=== PATIENT | female | born 1965 | race Caucasian/White ===

== ENCOUNTER 2022-10-26 20:20 | Inpatient (IN) | payer MEDICAID ==
[~2022-10-26] VITALS: Ht 180.3 cm; Wt 94.1 kg
[2022-10-26] MEDS ORDERED: normal saline 1000ML IV soln IVB ONE (20:30)
[2022-10-26 21:03] LABS: BASOPHILS # (AUTO) 0.1 X10'3 (0-0.2); BASOPHILS % (AUTO) 0.8 % (0-1); EOSINOPHILS # (AUTO) 0.1 X10'3 (0-0.9); EOSINOPHILS % (AUTO) 0.4 % (0-6); HEMATOCRIT 46.6 % (35.0-45.0); HEMOGLOBIN 15.7 g/dl (12.0-16.0); LYMPHOCYTES # (AUTO) 1.8 X10'3 (1.1-4.8); LYMPHOCYTES % (AUTO) 11.9 % (21-51); MEAN CORPUSCULAR HEMOGLOBIN 31.9 PG (27.0-31.0); MEAN CORPUSCULAR HGB CONC 33.7 g/dL (33.0-36.5); MEAN CORPUSCULAR VOLUME 94.8 FL (78-98); MEAN PLATELET VOLUME 8.6 FL (7.4-10.4); MONOCYTES # (AUTO) 0.8 X10'3 (0-0.9); MONOCYTES % (AUTO) 5.2 % (2-12); NEUTROPHILS # (AUTO) 12.5 X10'3 (1.8-7.7); NEUTROPHILS % (AUTO) 81.7 % (42-75); PLATELET COUNT 274 X10'3 (140-440); RED BLOOD COUNT 4.91 X10'6 (4.20-5.60); RED CELL DISTRIBUTION WIDTH 13.8 % (11.5-14.5); WHITE BLOOD COUNT 15.3 X10'3 (4.5-11.0)
[2022-10-26 21:17] LABS: ALANINE AMINOTRANSFERASE 20 U/L (12-78); ALBUMIN 3.6 G/DL (3.4-5.0); ALBUMIN/GLOBULIN RATIO 1.1 (1.1-1.5); ALKALINE PHOSPHATASE 124 IU/L (46-116); ANION GAP 10 (8-16); ASPARTATE AMINO TRANSFERASE 12 U/L (10-37); BILIRUBIN,TOTAL 0.3 MG/DL (0.1-1.0); BLOOD UREA NITROGEN 7 MG/DL (7-18); BUN/CREATININE RATIO 8.4 (6.6-38.0); CALCIUM 8.8 MG/DL (8.5-10.1); CHLORIDE 99 MMOL/L (99-107); CREATININE 0.83 MG/DL (0.40-0.90); GLUCOSE 326 MG/DL (70-104); POTASSIUM 4.6 MMOL/L (3.5-5.1); SODIUM 134 MMOL/L (135-145); TOTAL CARBON DIOXIDE 24.9 MMOL/L (24-32); eGFR 71 ML/MIN
[2022-10-26] MEDS ORDERED: morphine 4 MG/ML inj SYRINge IM ONE (21:25)
[2022-10-26] MEDS ORDERED: morphine 4 MG/ML inj SYRINge IV ONE (22:35)
[2022-10-26] MEDS ORDERED: GABA800T11 PO (22:53)
[2022-10-26] MEDS ORDERED: ZIPR40CA2 PO (22:53)
[2022-10-26] MEDS ORDERED: GEMF600T PO (22:53)
[2022-10-26] MEDS ORDERED: CLON-527 PO (22:53)
[2022-10-26] MEDS ORDERED: RIVA20TA PO (22:53)
[2022-10-26] MEDS ORDERED: SYN0.088T PO (22:53)
[2022-10-26] MEDS ORDERED: LEVO120C PO (22:53)
[2022-10-26] MEDS ORDERED: gabapentin 400mg capsule PO SCH (23:36)
[2022-10-26] MEDS ORDERED: ziprasidone 20mg capsule PO SCH (23:36)
[2022-10-26] MEDS ORDERED: LORazepam 1 MG tablet PO ONE (23:40)
[2022-10-26] MEDS ORDERED: mag hydrox/Alum hydrox/simeth 30ml oral suspension PO PRN (23:55)
[2022-10-26] MEDS ORDERED: morphine 2 MG/ML inj. syringe IV PRN ×2 (23:55)
[2022-10-26] MEDS ORDERED: glucagon, human recombinant 1mg kit SUBCUT PRN (23:55)
[2022-10-26] MEDS ORDERED: PERFLUTREN PROTEIN-A MICROSPHR (Optison) 0.22 MG/ML 3ML VIAL IV ONE (23:55)
[2022-10-26] MEDS ORDERED: dextrose 50%-water 50ml dispensing syringe IV PRN ×2 (23:55)
[2022-10-26] MEDS ORDERED: magnesium 4gm in 100ml NS 100 ML IV PRN (23:55)
[2022-10-26] MEDS ORDERED: DEXTROSE 15 GM of carb/4 tabs (each vial/BOTTLE has 4 tablets) PO PRN ×2 (23:55)
[2022-10-26] MEDS ORDERED: magnesium hydroxide 30ml (MOM) UD suspension PO PRN (23:55)
[2022-10-26] MEDS ORDERED: potassium Cl 20 mEq SR tablet PO PRN ×2 (23:55)
[2022-10-26] MEDS ORDERED: MESSAGE TO PHARMACY PO ONE (23:55)
[2022-10-26] MEDS ORDERED: acetaminophen 325mg tablet PO PRN (23:55)
[2022-10-26] MEDS ORDERED: potassium Cl 40MEQ/1/2NS 520ml 520 ML IV PRN (23:55)
[2022-10-27] MEDS ORDERED: iohexol 350MG/ML 100ml bottle IV ONE (00:11)
[2022-10-27] MEDS ORDERED: gabapentin 400mg capsule PO SCH (00:50)
[2022-10-27] MEDS: normal saline 1000ml 1,000 ML IV SCH ×3 (01:12→20:34)
[2022-10-27] MEDS ORDERED: HYDROmorphone 1 mg/ml syringe IV ONE (01:25)
[2022-10-27] MEDS: levoTHYROXINE 100mcg tablet PO SCH (07:02)
[2022-10-27] MEDS: ondansetron/PF 4mg/2ml inj IV PRN (07:02)
[2022-10-27] MEDS: docusate sod 100mg capsule PO SCH ×2 (07:15→20:00)
[2022-10-27 07:25] LABS: BASOPHILS % (AUTO) 0.3 % (0-1); EOSINOPHILS % (AUTO) 0.2 % (0-6); HEMATOCRIT 41.9 % (35.0-45.0); HEMOGLOBIN 14.4 g/dl (12.0-16.0); LYMPHOCYTES # (AUTO) 2.8 X10'3 (1.1-4.8); LYMPHOCYTES % (AUTO) 24.1 % (21-51); MEAN CORPUSCULAR HEMOGLOBIN 32.9 PG (27.0-31.0); MEAN CORPUSCULAR HGB CONC 34.4 g/dL (33.0-36.5); MEAN CORPUSCULAR VOLUME 95.9 FL (78-98); MEAN PLATELET VOLUME 8.9 FL (7.4-10.4); MONOCYTES # (AUTO) 0.8 X10'3 (0-0.9); NEUTROPHILS % (AUTO) 68.4 % (42-75); PLATELET COUNT 285 X10'3 (140-440); RED BLOOD COUNT 4.37 X10'6 (4.20-5.60); RED CELL DISTRIBUTION WIDTH 14.1 % (11.5-14.5); WHITE BLOOD COUNT 11.7 X10'3 (4.5-11.0)
[2022-10-27] MEDS: ziprasidone 20mg capsule PO SCH ×2 (07:29→20:32)
[2022-10-27] MEDS: clonazePAM 1mg tablet PO SCH ×3 (07:29→20:31)
[2022-10-27 09:08] LABS: ALANINE AMINOTRANSFERASE 44 U/L (12-78); ALBUMIN 3.3 G/DL (3.4-5.0); ALKALINE PHOSPHATASE 138 IU/L (46-116); ANION GAP 9 (8-16); ASPARTATE AMINO TRANSFERASE 41 U/L (10-37); BILIRUBIN,TOTAL 0.4 MG/DL (0.1-1.0); BLOOD UREA NITROGEN 8 MG/DL (7-18); BUN/CREATININE RATIO 10.3 (6.6-38.0); CALCIUM 8.6 MG/DL (8.5-10.1); CHLORIDE 101 MMOL/L (99-107); CREATININE 0.78 MG/DL (0.40-0.90); GLUCOSE 244 MG/DL (70-104); MAGNESIUM 1.4 MG/DL (1.5-2.4); POTASSIUM 4.2 MMOL/L (3.5-5.1); SODIUM 137 MMOL/L (135-145); TOTAL CARBON DIOXIDE 26.8 MMOL/L (24-32); TOTAL PROTEIN 6.7 G/DL (6.4-8.2); eGFR 76 ML/MIN
[2022-10-27] MEDS: HYDROmorphone inj. 0.5 MG/0.5 ML DISP.SYRIN IV PRN ×4 (09:23→23:36)
[2022-10-27] MEDS ORDERED: DULA0.75 SQ (12:36)
[2022-10-27] MEDS ORDERED: ZIPR60CA7 PO (12:37)
[2022-10-27] MEDS ORDERED: ZIPR40CA14 PO (12:37)
[2022-10-27] MEDS ORDERED: ALBU18HF2 PO (12:38)
[2022-10-27] MEDS ORDERED: GABA300C PO (12:39)
[2022-10-27] MEDS ORDERED: VARE1TAB29 PO (12:41)
[2022-10-27] MEDS ORDERED: METF-1203 PO (12:41)
[2022-10-27] MEDS ORDERED: METF-436 PO (12:41)
[2022-10-27] MEDS: insulin Lispro (HumaLOG) vial - multi-dose SQ SCH ×2 (13:42→22:02)
[2022-10-27 17:40] VITALS: BP 129/74
[2022-10-27 18:09] LABS: HEMOGLOBIN A1C 8.1 % (4.5-6.2)
--- NOTE | 2022-10-27 18:34 | NUR ---
PAGER ID: [phone] MESSAGE: [id number] GOLDEN MENDEZ PATIENT HAS A TRACHEAL NODULE THAT MAKES IT HARD TO SWALLOW. DO YOU WANT A BSS? AND WHAT KIND OF DIET. SHIELA [phone]
--- NOTE | 2022-10-27 18:40 | NUR ---
Problems reprioritized. Patient report given, questions answered & plan of care reviewed with MOE PALM.
[2022-10-27 22:00] VITALS: BP 151/85
[2022-10-27] MEDS: insulin glargine (Lantus) pen - multi-dose SQ SCH (22:03)
[2022-10-27] MEDS ORDERED: gabapentin 300mg capsule PO SCH (22:30)
[2022-10-27] MEDS ORDERED: cyclobenzaprine 10mg tablet PO PRN (22:30)
[2022-10-27] MEDS: cyclobenzaprine 10mg tablet PO PRN (23:12)
[2022-10-28] MEDS: ondansetron/PF 4mg/2ml inj IV PRN (01:15)
[2022-10-28] MEDS: HYDROmorphone inj. 0.5 MG/0.5 ML DISP.SYRIN IV PRN ×3 (03:50→20:17)
[2022-10-28] MEDS: normal saline 1000ml 1,000 ML IV SCH ×3 (03:51→23:52)
[2022-10-28 07:00] VITALS: BP 123/80
[2022-10-28 07:09] LABS: BASOPHILS % (AUTO) 0.3 % (0-1); EOSINOPHILS % (AUTO) 0.3 % (0-6); HEMATOCRIT 39.9 % (35.0-45.0); HEMOGLOBIN 13.5 g/dl (12.0-16.0); LYMPHOCYTES # (AUTO) 3.2 X10'3 (1.1-4.8); LYMPHOCYTES % (AUTO) 28.9 % (21-51); MEAN CORPUSCULAR HEMOGLOBIN 32.1 PG (27.0-31.0); MEAN CORPUSCULAR HGB CONC 33.8 g/dL (33.0-36.5); MEAN PLATELET VOLUME 9.2 FL (7.4-10.4); MONOCYTES # (AUTO) 0.9 X10'3 (0-0.9); NEUTROPHILS % (AUTO) 62.5 % (42-75); PLATELET COUNT 270 X10'3 (140-440); RED CELL DISTRIBUTION WIDTH 13.9 % (11.5-14.5); WHITE BLOOD COUNT 11.2 X10'3 (4.5-11.0)
--- NOTE | 2022-10-28 07:24 | NUR ---
Page sent to [facility] Praneeth Ibarra: EEG ordered. not sure if you have been notified yet. thank you!
[2022-10-28 07:38] LABS: ALANINE AMINOTRANSFERASE 29 U/L (12-78); ALBUMIN 3.1 G/DL (3.4-5.0); ALBUMIN/GLOBULIN RATIO 0.9 (1.1-1.5); ALKALINE PHOSPHATASE 122 IU/L (46-116); ANION GAP 10 (8-16); ASPARTATE AMINO TRANSFERASE 16 U/L (10-37); BILIRUBIN,TOTAL 0.4 MG/DL (0.1-1.0); BLOOD UREA NITROGEN 7 MG/DL (7-18); BUN/CREATININE RATIO 10.6 (6.6-38.0); CALCIUM 8.2 MG/DL (8.5-10.1); CHLORIDE 103 MMOL/L (99-107); CREATININE 0.66 MG/DL (0.40-0.90); GLUCOSE 267 MG/DL (70-104); MAGNESIUM 1.4 MG/DL (1.5-2.4); POTASSIUM 4.1 MMOL/L (3.5-5.1); SODIUM 136 MMOL/L (135-145); TOTAL CARBON DIOXIDE 23.1 MMOL/L (24-32); TOTAL PROTEIN 6.4 G/DL (6.4-8.2); eGFR > 90 ML/MIN
[2022-10-28] MEDS: docusate sod 100mg capsule PO SCH ×2 (08:00→20:00)
--- NOTE | 2022-10-28 08:46 | NUR ---
Message: Praneeth Leal: will patient be having surgery this admission? she is wanting to eat. thank you, michael [phone] Transaction number: [id number]
[2022-10-28] MEDS: gabapentin 300mg capsule PO SCH ×3 (08:51→20:12)
[2022-10-28] MEDS: clonazePAM 1mg tablet PO SCH ×3 (08:51→20:13)
[2022-10-28] MEDS: levoTHYROXINE 100mcg tablet PO SCH (08:51)
--- NOTE | 2022-10-28 08:59 | NUR ---
Patient refused humalog coverage for blood glucose of 257.
[2022-10-28 11:00] VITALS: BP 152/75
[2022-10-28] MEDS: ziprasidone 20mg capsule PO SCH ×2 (11:00→20:12)
--- NOTE | 2022-10-28 13:21 | NUR ---
Malnutrition/DM Consults: Pt admit s/p fall DX L humerus fx pending OR for repair tomorrow per EMR. Pt hx T2DM A1C 8.1% reports greater than 34 pounds wt loss w/ decreased intake [employer] per EMR. Noted intermittent dysphagia per MD note pending first PO intake carb controlled diet WL today per EMR. 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 Pending scaled wt this admit though current reported wt 207 pounds would be 16% UBW loss 3 months severe. Pt w/ mild temporal wasting evident and given predicted suboptimal intake w/ wt loss meets severe malnutrition criteria; MD notified. RD made pt aware of [employer]ONG[employer] BSS services this admit but pt declines. Pt politely declines verbal DM diet report has had education her whole life though is agreeable to written DM ed w/ RD contact information left at bedside. Pt reports takes metformin at home w/ last A1C prior to admit 8.6% takes meds per rx and checks Glu routinely typically ~220mg/dl at home. RD encouraged pt to contact dietitian's office if further nutrition questions/concerns this admit. Pt also reports severe pistachio allergy; EMR updated and dietary notified. Will monitor for PO trends and further nutrition intervention needs this admit. Rec: 1. continue carb controlled diet; encourage PO 2. monitor for PO trends and ONS needs; pending OR tomorrow per EMR 3. MVI supplementation for wound healing post-op per physician discretion 4. routine bowel care 5. scaled wt this admit; subsequent weekly wts Addendum: 10/28/22 at [address] Amended: Links added.
[2022-10-28] MEDS: magnesium Cl slow-release 64mg tablet PO PRN ×2 (14:38→20:13)
--- NOTE | 2022-10-28 15:38 | NUR ---
Patient refused humalog coverage for blood glucose of 250. Addendum: 10/28/22 at 1538 by Shante Man RN Amended: Links added.
[2022-10-28 18:00] VITALS: BP 114/69
--- NOTE | 2022-10-28 18:23 | NUR ---
Problems reprioritized. Patient report given, questions answered & plan of care reviewed with NÉSTOR Cook.
--- NOTE | 2022-10-28 18:35 | NUR ---
Patient in room NAHED 356. I have received report from RAGINI PALM and had the opportunity to ask questions and assume patient care.
[2022-10-28] MEDS: insulin Lispro (HumaLOG) vial - multi-dose SQ SCH (19:33)
[2022-10-28] MEDS: cyclobenzaprine 10mg tablet PO PRN (20:14)
[2022-10-28 22:00] VITALS: BP 131/80
[2022-10-28] MEDS: insulin glargine (Lantus) pen - multi-dose SQ SCH (22:05)
[2022-10-29] VITALS (20 sets, daily range): BP systolic 89–161; BP diastolic 39–85
[2022-10-29] MEDS: HYDROmorphone inj. 0.5 MG/0.5 ML DISP.SYRIN IV PRN ×3 (00:41→10:43)
[2022-10-29 06:16] LABS: BASOPHILS # (AUTO) 0.1 X10'3 (0-0.2); BASOPHILS % (AUTO) 0.4 % (0-1); EOSINOPHILS # (AUTO) 0.1 X10'3 (0-0.9); EOSINOPHILS % (AUTO) 0.4 % (0-6); HEMATOCRIT 39.9 % (35.0-45.0); HEMOGLOBIN 13.5 g/dl (12.0-16.0); LYMPHOCYTES # (AUTO) 2.8 X10'3 (1.1-4.8); LYMPHOCYTES % (AUTO) 18.6 % (21-51); MEAN CORPUSCULAR HEMOGLOBIN 32.2 PG (27.0-31.0); MEAN CORPUSCULAR HGB CONC 33.8 g/dL (33.0-36.5); MEAN CORPUSCULAR VOLUME 95.4 FL (78-98); MEAN PLATELET VOLUME 8.9 FL (7.4-10.4); MONOCYTES % (AUTO) 6.6 % (2-12); NEUTROPHILS # (AUTO) 11.3 X10'3 (1.8-7.7); PLATELET COUNT 287 X10'3 (140-440); RED BLOOD COUNT 4.18 X10'6 (4.20-5.60); RED CELL DISTRIBUTION WIDTH 13.8 % (11.5-14.5); WHITE BLOOD COUNT 15.3 X10'3 (4.5-11.0)
--- NOTE | 2022-10-29 06:30 | NUR ---
Problems reprioritized. Patient report given, questions answered & plan of care reviewed with RAGINI PALM.
[2022-10-29 06:43] LABS: ALANINE AMINOTRANSFERASE 25 U/L (12-78); ALBUMIN/GLOBULIN RATIO 0.9 (1.1-1.5); ALKALINE PHOSPHATASE 117 IU/L (46-116); ANION GAP 9 (8-16); ASPARTATE AMINO TRANSFERASE 10 U/L (10-37); BILIRUBIN,TOTAL 0.5 MG/DL (0.1-1.0); BLOOD UREA NITROGEN 9 MG/DL (7-18); BUN/CREATININE RATIO 13.8 (6.6-38.0); CALCIUM 8.8 MG/DL (8.5-10.1); CHLORIDE 102 MMOL/L (99-107); CREATININE 0.65 MG/DL (0.40-0.90); GLUCOSE 269 MG/DL (70-104); MAGNESIUM 1.5 MG/DL (1.5-2.4); POTASSIUM 3.9 MMOL/L (3.5-5.1); SODIUM 137 MMOL/L (135-145); TOTAL CARBON DIOXIDE 26.3 MMOL/L (24-32); TOTAL PROTEIN 6.3 G/DL (6.4-8.2); eGFR > 90 ML/MIN
[2022-10-29] MEDS: levoTHYROXINE 100mcg tablet PO SCH (07:25)
[2022-10-29] MEDS: clonazePAM 1mg tablet PO SCH ×3 (07:26→19:21)
[2022-10-29] MEDS: gabapentin 300mg capsule PO SCH ×3 (07:26→16:58)
[2022-10-29] MEDS: ziprasidone 20mg capsule PO SCH (07:26)
[2022-10-29] MEDS: insulin Lispro (HumaLOG) vial - multi-dose SQ SCH ×3 (07:34→21:30)
[2022-10-29] MEDS: docusate sod 100mg capsule PO SCH ×2 (07:37→20:00)
[2022-10-29] MEDS: normal saline 1000ml 1,000 ML IV SCH ×2 (11:55→21:55)
--- NOTE | 2022-10-29 13:01 | NUR ---
report called to [facility] recovery analyst.
[2022-10-29] MEDS ORDERED: cloNIDine hcl/PF 100mcg/ml inj ONE (13:26)
[2022-10-29] MEDS ORDERED: fentaNYL /PF 50mcg/ml 5ml ampule ONE (13:29)
[2022-10-29] MEDS ORDERED: midazolam 1 mg/ML 2ml injection ONE (13:29)
[2022-10-29] MEDS ORDERED: propofol inj 20 ML IV ONE (13:30)
[2022-10-29] MEDS ORDERED: ePHEDrine 50MG/ML INJ. ONE (13:34)
[2022-10-29] MEDS ORDERED: sevoflurane 250ml liquid IH ONE (13:34)
[2022-10-29] MEDS ORDERED: ceFAZolin 1000mg inj ONE ×2 (14:23)
[2022-10-29] MEDS ORDERED: ROPIVAcaine 0.5% (5mg/ml) 30ml vial ONE (14:41)
[2022-10-29] MEDS ORDERED: vancomycin 1,000mg inj ONE (14:42)
[2022-10-29] MEDS ORDERED: dexamethasone sod phosphate 4mg/ml inj. ONE (14:43)
[2022-10-29] MEDS ORDERED: rocuronium 10mg/ml inj IV ONE (14:43)
[2022-10-29] MEDS ORDERED: ROPIVAcaine 0.2%/PF PUMP/bolus 545 ML INTERSCALE SCH (15:15)
[2022-10-29] MEDS ORDERED: ringers solution, lacted 1,000 ML IV SCH (15:15)
[2022-10-29] MEDS ORDERED: morphine 4 MG/ML inj SYRINge IV PRN (15:15)
[2022-10-29] MEDS ORDERED: ROPIVAcaine 0.2% (10 MG/5 ML) BOLUS INJECTION INTERSCALE PRN (15:15)
[2022-10-29] MEDS ORDERED: ondansetron/PF 4mg/2ml inj IV PRN (15:15)
[2022-10-29] MEDS ORDERED: proCHLORperazine 10 MG/2 ml inj IV PRN (15:15)
[2022-10-29] MEDS ORDERED: morphine 2 MG/ML inj. syringe IV PRN (15:15)
[2022-10-29] MEDS ORDERED: meperidine/PF 25mg/ml syringe IV PRN ×3 (15:15)
[2022-10-29] MEDS ORDERED: ondansetron/PF 4mg/2ml inj ONE (15:28)
[2022-10-29] MEDS ORDERED: sugammadex 200mg/2ml injection IV ONE (15:30)
--- NOTE | 2022-10-29 15:42 | NUR ---
Received from OR via ORTHO BED , accompanied by Anesthesiologist BRAN and report given by Anesthesiolgist. PATIENT WITH 20GPIV IN RIGHT UE RUNNING LR AT 100. VSS. DENIES PAIN AT THIS TIME LEFT SHOULDER WITH SHOULDER WRAP AND POWDER PACK. ON Q NERVE BLOCK SITE PRESENT AND WILL ATTACH ON Q UPON ARRIVAL. + RADIAL PULSE PRESENT AND SLING IS ON. VSS AND WILL CONTINUE TO ASSESS AND TREAT. Addendum: 10/29/22 at 1550 by Edgar Robin RN, RN Amended: Links added.
[2022-10-29] MEDS ORDERED: HYDROmorphone inj. 0.5 MG/0.5 ML DISP.SYRIN IV PRN (15:50)
[2022-10-29] MEDS ORDERED: HYDROcodone/acetaminophen 10/325mg tab PO PRN ×2 (15:50)
[2022-10-29] MEDS ORDERED: albuterol 2.5 MG/3 ML nebule NEB PRN (15:50)
[2022-10-29] MEDS ORDERED: HYDROmorphone 1 mg/ml syringe IV PRN (15:50)
[2022-10-29] MEDS ORDERED: naloxone 0.4 mg/ml inj IV PRN (15:50)
--- NOTE | 2022-10-29 16:52 | NUR ---
REPORT GIVEN AND ALL QUESTIONS ANSWERED. PATIENT TRANSFERRED TO SURG/ORTHO PCU ICU. LABELED BELONGINGS PRESENT AND DELIVERED TO ROOM. RN PRESENT ALL CRITERIA FOR TRANSFER BACK TO THE FLOOR HAS BEEN ACHIEVED. VSS. PAIN AT A TOLERABLE LEVEL. BED LOW, CALL LIGHT PRESENT AND 2 RAILS DOWN. RN AWARE THAT PATIENT HAS ARRIVED. TO ACCEPT CARE OF PATIENT, NÉSTOR MEJIA PRESENT TO ACCEPT CARE OF PATIENT. Addendum: 10/29/22 at 1659 by Edgar Dixon - NÉSTOR PALM Amended: Links added.
--- NOTE | 2022-10-29 16:54 | NUR ---
patient back from OR. Vital signs stable. No complaints of pain. Dressing CDI.
[2022-10-29] MEDS: potassium cl 20mEq in 1/2 NS 1,000 ML IV SCH (16:58)
[2022-10-29] MEDS: ceFAZolin/D5W- 1GM premix 50 ML IV SCH ×2 (16:58→22:57)
[2022-10-29] MEDS ORDERED: rivaroxaban 20mg tablet PO SCH (18:21)
--- NOTE | 2022-10-29 18:26 | NUR ---
Problems reprioritized. Patient report given, questions answered & plan of care reviewed with NÉSTOR Tamayo.
--- NOTE | 2022-10-29 18:30 | NUR ---
Patient in room NAHED 356. I have received report from [place] and had the opportunity to ask questions and assume patient care.
[2022-10-29] MEDS ORDERED: vancomycin/NS 1 GM ADD-VANTAGE 250 ML IV SCH (20:00)
[2022-10-29] MEDS ORDERED: sennosides 8.6mg tablet PO SCH (21:00)
[2022-10-29] MEDS ORDERED: ziprasidone 20mg capsule PO SCH (21:00)
[2022-10-29] MEDS ORDERED: metFORMIN 500mg tablet PO SCH (21:00)
[2022-10-29] MEDS: insulin glargine (Lantus) pen - multi-dose SQ SCH (21:31)
[2022-10-29] MEDS: varenicline tartrate 1mg tablet PO SCH (22:57)
[2022-10-30] MEDS: gabapentin 300mg capsule PO SCH ×3 (00:30→15:34)
[2022-10-30] MEDS: potassium cl 20mEq in 1/2 NS 1,000 ML IV SCH ×3 (00:34→15:34)
[2022-10-30 02:00] VITALS: BP 115/78
[2022-10-30 06:35] LABS: BASOPHILS % (AUTO) 0.1 % (0-1); EOSINOPHILS % (AUTO) 0 % (0-6); HEMOGLOBIN 10.8 g/dl (12.0-16.0); LYMPHOCYTES # (AUTO) 1.4 X10'3 (1.1-4.8); LYMPHOCYTES % (AUTO) 10.4 % (21-51); MEAN CORPUSCULAR HEMOGLOBIN 32.2 PG (27.0-31.0); MEAN CORPUSCULAR HGB CONC 33.7 g/dL (33.0-36.5); MEAN CORPUSCULAR VOLUME 95.5 FL (78-98); MEAN PLATELET VOLUME 9.5 FL (7.4-10.4); MONOCYTES # (AUTO) 1.2 X10'3 (0-0.9); MONOCYTES % (AUTO) 8.7 % (2-12); NEUTROPHILS # (AUTO) 11.2 X10'3 (1.8-7.7); NEUTROPHILS % (AUTO) 80.8 % (42-75); PLATELET COUNT 237 X10'3 (140-440); RED BLOOD COUNT 3.35 X10'6 (4.20-5.60); RED CELL DISTRIBUTION WIDTH 13.2 % (11.5-14.5); WHITE BLOOD COUNT 13.8 X10'3 (4.5-11.0)
[2022-10-30 07:00] VITALS: BP 100/62
[2022-10-30 07:04] LABS: ALANINE AMINOTRANSFERASE 21 U/L (12-78); ALBUMIN 2.3 G/DL (3.4-5.0); ALBUMIN/GLOBULIN RATIO 0.8 (1.1-1.5); ALKALINE PHOSPHATASE 101 IU/L (46-116); ANION GAP 8 (8-16); ASPARTATE AMINO TRANSFERASE 14 U/L (10-37); BILIRUBIN,TOTAL 0.3 MG/DL (0.1-1.0); BLOOD UREA NITROGEN 10 MG/DL (7-18); BUN/CREATININE RATIO 18.2 (6.6-38.0); CALCIUM 7.6 MG/DL (8.5-10.1); CHLORIDE 101 MMOL/L (99-107); CREATININE 0.55 MG/DL (0.40-0.90); GLUCOSE 250 MG/DL (70-104); MAGNESIUM 1.4 MG/DL (1.5-2.4); SODIUM 129 MMOL/L (135-145); TOTAL CARBON DIOXIDE 20.1 MMOL/L (24-32); TOTAL PROTEIN 5.2 G/DL (6.4-8.2); eGFR > 90 ML/MIN
[2022-10-30 07:14] LABS: POTASSIUM 6.2 MMOL/L (3.5-5.1)
[2022-10-30] MEDS: clonazePAM 1mg tablet PO SCH ×2 (07:18→12:05)
[2022-10-30] MEDS: levoTHYROXINE 100mcg tablet PO SCH (07:18)
[2022-10-30] MEDS: normal saline 1000ml 1,000 ML IV SCH ×2 (07:22→16:25)
[2022-10-30] MEDS: docusate sod 100mg capsule PO SCH (07:23)
--- NOTE | 2022-10-30 07:29 | NUR ---
Message: ToniaA Stacey T: Critical K 6.2. IVF with K have been stopped. any new orders? thanks, michael [phone] Transaction number: [id number]
[2022-10-30] MEDS ORDERED: ziprasidone 20mg capsule PO SCH (08:00)
[2022-10-30] MEDS ORDERED: metFORMIN 500mg tablet PO SCH (08:00)
[2022-10-30] MEDS ORDERED: gemfibrozil 600mg tablet PO SCH (08:00)
[2022-10-30] MEDS: varenicline tartrate 1mg tablet PO SCH (08:58)
[2022-10-30] MEDS: insulin Lispro (HumaLOG) vial - multi-dose SQ SCH (09:03)
[2022-10-30 11:32] VITALS: BP 121/72
--- NOTE | 2022-10-30 11:33 | NUR ---
Message: ToniaA Stacey, T: ASHKAN...patient cleared by Dr. Garcia for discharge. thanks! michael [phone] Transaction number: [id number]
--- NOTE | 2022-10-30 14:09 | NUR ---
patient refused insulin coverage for blood glucose level of 205 and the small amount of carbs she ate. Addendum: 10/30/22 at 1410 by Shante Man RN Amended: Links added.
[2022-10-30 14:40] LABS: CLARITY,URINE SLIGHTLY CLOUDY (Clear); COLOR,URINE YELLOW (Yellow); GLUCOSE, URINE NEGATIVE (Neg); KETONES,URINE NEGATIVE (Neg); LEUKOCYTE ESTERASE ,URINE MODERATE (Neg); NITRITES, URINE NEGATIVE (Neg); OCCULT BLOOD,URINE NEGATIVE (Neg); PROTEIN,URINE NEGATIVE (Neg); UROBILINOGEN,URINE 0.2 E.U/dL (0.2-1.0)
[2022-10-30 14:42] LABS: UA COLLECTION TYPE CLN CATCH MIDSTREAM
[2022-10-30 14:47] LABS: BACTERIA,URINE FEW /HPF (Neg); MUCUS STRANDS NONE SEEN /LPF (Neg); RBC,URINE 0-2 /HPF (0-2); SQUAMOUS EPITHELIAL CELL,UR MANY /LPF (FEW); WBC,URINE 30-50 /HPF (0-4)
--- NOTE | 2022-10-30 14:57 | NUR ---
Message: ToniaA Stacey T: UA has resulted. patient is wanting to dc if she can. thanks! michael [phone] Transaction number: [id number]
[2022-10-30] MEDS ORDERED: CefTRIAXone/D5W-Rocephin 1gm 50 ML IV STA (15:07)
[2022-10-30] MEDS ORDERED: LACT1CAP26 PO (15:30)
[2022-10-30] MEDS ORDERED: HYDR-3965 PO (15:30)
[2022-10-30] MEDS ORDERED: CEFD300C3 PO (15:30)
--- NOTE | 2022-10-30 16:23 | NUR ---
Patient stable and appropriate for discharge home with Aunt (Renea). IV removed, night monitor removed. All belongings gathered in room. All discharge instructions and education given and reviewed with patient, all questions answered. New RX e-scripted to preferred pharmacy. Randall picked up from pharmacy and returned to patient. Awaiting patients ride that is coming from [employer].
--- NOTE | 2022-10-30 17:30 | NUR ---
patient picked up by her aunt kenyon.
--- NOTE | 2022-10-30 17:52 | NUR ---
not done, patient discharging Addendum: 10/30/22 at 1807 by Shante Man RN Amended: Links added.
[2022-11-02] MEDS ORDERED: Dulaglutide (Trulicity) 0.5 ML SQ SCH (08:00)
== END 2022-10-30 17:30 | disposition home or self-care (01) | DRG 315 ==
LOC: ER 20:22 → ED HOLD 10-27 00:05 → EDBEDREQ 10-27 02:23 → SUR 3N 10-27 17:45
PROVIDERS: ADMIT Family Medicine; ATTEND Internal Medicine
PROC: 3E0T3BZ Introduction of Anesthetic Agent into Peripheral Nerves and Plexi, Percutaneous Approach (ICD-10-PCS; 2022-10-29)
PROC: 3E0T33Z Introduction of Anti-inflammatory into Peripheral Nerves and Plexi, Percutaneous Approach (ICD-10-PCS; 2022-10-29)
PROC: 0PHD04Z Insertion of Internal Fixation Device into Left Humeral Head, Open Approach (ICD-10-PCS; principal; 2022-10-29 13:34)
DX: S42.232A 3-part fracture of surgical neck of left humerus, initial encounter for closed fracture (principal); J39.8 Other specified diseases of upper respiratory tract; E66.9 Obesity, unspecified; D72.829 Elevated white blood cell count, unspecified; E11.65 Type 2 diabetes mellitus with hyperglycemia; E78.5 Hyperlipidemia, unspecified; S42.002A Fracture of unspecified part of left clavicle, initial encounter for closed fracture; F41.9 Anxiety disorder, unspecified; E89.0 Postprocedural hypothyroidism; R22.1 Localized swelling, mass and lump, neck; W18.39XA Other fall on same level, initial encounter; R55 Syncope and collapse; F31.9 Bipolar disorder, unspecified; R13.10 Dysphagia, unspecified; Z83.3 Family history of diabetes mellitus; Z86.718 Personal history of other venous thrombosis and embolism; Z88.6 Allergy status to analgesic agent; Z88.8 Allergy status to other drugs, medicaments and biological substances; Z68.28 Body mass index [BMI] 28.0-28.9, adult; Y93.89 Activity, other specified; Y92.098 Other place in other non-institutional residence as the place of occurrence of the external cause; Y99.8 Other external cause status; Z79.01 Long term (current) use of anticoagulants; Z79.899 Other long term (current) drug therapy; Z85.850 Personal history of malignant neoplasm of thyroid
CPT/HCPCS: 36415; 70450; 71045; 73030; 73060; 76000; 80053; 81001; 82948; 83036; 83735; 84132; 84443; 84484; 85025; 87088; 93308; 93880; 99285; A4565; A4615; A4618; A7000; C1713; G0378; J0690; J0696; J0735; J1100; J1170; J1815; J2250; J2270; J2405; J2704; J2795; J3010; J3370; J3480; J3490; J7030; J7040; J7120; Q9967